=== PATIENT | male | born 1975 | race Native Hawaiian/Other Pacific Islander ===

== ENCOUNTER → 2019-11-09 | Outpatient (CLI) | payer OTHER ==
--- NOTE | 2019-11-09 09:27 | MRI ---
EXAM DESCRIPTION: MRI right hip CLINICAL HISTORY: Muscle pain. Myalgia COMPARISON: None. TECHNIQUE: Multiplanar, multisequence MR images of the right hip FINDINGS: Intratendinous and peritendinous edema gluteus minimus and vick insertion to the femur. Broad region of surrounding soft tissue edema. The tendon is intact. No muscle abnormality Mild insertional tendinosis of the gluteus minimus and anterior gluteus medius Tiny chronic osteochondral lesion of the anterior superior weightbearing femoral head, 5 mm in size. No other osteochondral lesion of the hip. Physiologic joint fluid. No diagnostic labral detachment. Large [id number] images of the left hip demonstrate a similar tiny osteochondral lesion of the anterior weightbearing femoral head. Crescentic region of subchondral marrow edema in the anterior weightbearing acetabulum also likely from overlying chondrosis. Physiologic joint fluid No pelvic soft tissue mass lesion, adenopathy or free fluid IMPRESSION: Severe insertional tendinosis of the gluteus vick on the right. Intratendinous and peritendinous edema with broad region of surrounding soft tissue edema. No tendon tear. Consider CT correlation as deemed clinically indicated. This degree of inflammation can often be seen with acute calcific tendinitis. Calcium deposit can be difficult to see on MRI Electronically signed by: Korey Moreira MD 11/09/2019 9:25 AM CDT
== END ==
LOC: MRI 08:04
PROVIDERS: ATTEND Nurse Practitioner Family
DX: M76.01 Gluteal tendinitis, right hip (principal); R60.9 Edema, unspecified; M79.10 Myalgia, unspecified site

== ENCOUNTER → 2019-11-17 | Outpatient (CLI) | payer OTHER ==
--- NOTE | 2019-11-17 12:32 | RAD ---
EXAM DESCRIPTION: Pelvis CLINICAL HISTORY: 44 years Male, PAIN IN RIGHT HIP COMPARISON: None. TECHNIQUE: AP radiograph of the pelvis was performed. FINDINGS: The pelvic ring appears grossly intact on this single AP radiograph. No acute fracture or dislocation. Bilateral sacroiliac joints appear normal. Bilateral hip joints appear normal. The visualized lumbo-sacral spine demonstrates mild degenerative changes. IMPRESSION: Single AP radiograph of the pelvis demonstrates grossly intact pelvic ring. Electronically signed by: Yissel Cook MD 11/17/2019 12:31 PM CDT
--- NOTE | 2019-11-17 12:33 | RAD ---
EXAM DESCRIPTION: Hip,Right 2 Views CLINICAL HISTORY: 44 years Male, PAIN IN RIGHT HIP COMPARISON: None available. FINDINGS: The visualized bones are well-mineralized.No acute fracture or dislocation. The soft tissues appear grossly unremarkable. IMPRESSION: Normal radiographs of the right hip. Electronically signed by: Yissel Cook MD 11/17/2019 12:31 PM CDT
== END ==
LOC: RAD 07:39
PROVIDERS: ATTEND Orthopaedic Surgery
DX: M25.551 Pain in right hip (principal)